=== PATIENT | male | born 1985 | race Caucasian/White ===

== ENCOUNTER 2017-12-15 18:42 | Emergency (ER) | payer OTHER, BC ==
[~2017-12-15] VITALS: Ht 177.8 cm; Wt 102.3 kg
[~2017-12-15 18:42] MED LIST: NORCO 325 MG-7.1 TAB PO
[2017-12-15 18:51] VITALS: BP 135/81; PULSE 122; TEMP 98.1
[2017-12-15] MEDS ORDERED: WELLBUTRIN SR200 MG PO (18:54)
[2017-12-15] MEDS ORDERED: BUSPAR DIVIDOSE15 MG PO (18:54)
== END 2017-12-15 19:46 | disposition home or self-care (01) ==
LOC: COL.ER 18:42
DX: S93.401A Sprain of unspecified ligament of right ankle, initial encounter (principal); W22.8XXA Striking against or struck by other objects, initial encounter; X50.0XXA Overexertion from strenuous movement or load, initial encounter; Y92.89 Other specified places as the place of occurrence of the external cause

== ENCOUNTER 2019-06-27 08:22 | Day surgery (SDC) | payer BC ==
[~2019-06-27] VITALS: Ht 177.8 cm; Wt 105.2 kg
[2019-06-27] VITALS (9 sets, daily range): BP systolic 117–134; BP diastolic 72–94; PULSE 76–92; TEMP 97.5–98.7
[~2019-06-27 08:22] MED LIST changes: +BUSPAR DIVIDOSE15 MG PO; +WELLBUTRIN SR200 MG PO
[2019-06-27] MEDS ORDERED: TYLENOL 500MG500 MG PO (08:48)
[2019-06-27] MEDS ORDERED: STOOL SOFTENER100 M2 PO (08:49)
--- NOTE | 2019-06-27 11:50 | NUR ---
Pt to [facility] [place] bay 1 via cart from PACU. Pt drowsy, but awake. Pt rates pain 5/10 to abdomen. Pt reports pain as "tolerable." Incisions to abdomen x3 are clean and dry with coyne set intact. Dressing to umbilical is clean, dry, and intact. Pt wanting to rest. Water provided. Lights dimmed. Will continue to monitor. Call light within reach.
--- NOTE | 2019-06-27 12:05 | NUR ---
Pt continues to rest. Denies needs. Call light within reach.
--- NOTE | 2019-06-27 12:20 | NUR ---
Pt rates pain 7/10 to abdomen. Will provide pain medication per PRN orders. Will continue to monitor. Call light within reach.
--- NOTE | 2019-06-27 12:35 | NUR ---
Pt continues to rest. Pt eating applesauce and crackers. Will continue to monitor. Call light within reach.
--- NOTE | 2019-06-27 13:05 | NUR ---
Pt tolerating food and fluids without difficulties. Mother in room. Will continue to monitor. Call light within reach.
[2019-06-27] MEDS ORDERED: NORCO 325 MG-51 TAB PO (13:19)
[2019-06-27] MEDS ORDERED: ZOFRAN 4MG T4 MG/TAB PO (13:19)
--- NOTE | 2019-06-27 13:35 | NUR ---
Pt rates pain 5/10 to abdomen. Denies needs at this time. Call light within reach.
--- NOTE | 2019-06-27 14:00 | NUR ---
Pt up to restroom with stand by assist. Pt voids large amount without difficulties. Pt back to room. Pt rates pain 8/10 with increased movement. Once back in bed and lying down pt rates pain 5/10. Pt has met criteria for dismissal. Will provide discharge instructions.
--- NOTE | 2019-06-27 14:15 | NUR ---
Discharge instructions reviewed. Pt voices understanding. IV site discontinued with all parts intact. Pt assisted with dressing by nursing staff.
--- NOTE | 2019-06-27 14:30 | NUR ---
Pt escorted to private car via wheel chair. Pt accompanied home by his mother.
== END 2019-06-27 14:30 | disposition home or self-care (01) ==
LOC: SDCO 08:22
DX: K43.2 Incisional hernia without obstruction or gangrene (principal); F32.9 Major depressive disorder, single episode, unspecified
CPT/HCPCS: C1781; J0690; J1100; J1885; J2405; J2704; J3010; J7120